=== PATIENT | female | born 1935 | race Caucasian/White ===

== ENCOUNTER 2024-01-23 08:52 | Inpatient (IN) ==
[2024-01-23] MEDS: fentaNYL 100 MCG/2 ML VIAL IV ONE ×2 (09:17→10:32)
[2024-01-23 09:49] LABS: Blood Urea Nitrogen 14 mg/dL (8-23); Calcium 8.7 mg/dL (8.6-10.4); Carbon Dioxide 28 mmol/L (22-30); Chloride 102 mmol/L (96-108); Glomerular Filtration Rate 87; Glucose 128 mg/dL (70-105); Potassium 3.7 mmol/L (3.3-5.1); Sodium 139 mmol/L (133-145)
[2024-01-23 09:53] LABS: INR 0.9 (0.9-1.1); Prothrombin Time 12.6 sec (11.9-14.5)
[2024-01-23 10:18] LABS: Basophils # (Auto) 0.04 K/mcL (0.00-0.30); Basophils % (Auto) 0.3 % (0.0-2.0); Eosinophils # (Auto) 0.04 K/mcL (0.00-0.70); Eosinophils % (Auto) 0.3 % (0.0-7.0); Hematocrit 36.5 % (34.1-44.9); Hemoglobin 11.8 g/dL (11.2-15.7); Lymphocytes # (Auto) 1.37 K/mcL (1.50-4.80); Lymphocytes % (Auto) 9.9 % (15.5-49.0); Mean Cell Volume 92.2 fL (80.0-100.0); Mean Corpuscular HGB Conc 32.3 g/dL (31.0-36.0); Mean Platelet Volume 9.8 fL (8.8-12.5); Monocytes # (Auto) 1.21 K/mcL (0.10-0.90); Monocytes % (Auto) 8.8 % (1.0-12.0); Neutrophils % (Auto) 80.3 % (38.0-78.0); Platelet Count 243 K/mcL (140-440); RBC 3.96 M/mcL (3.59-5.38); Red Cell Distribution Width 13.4 % (11.5-14.5); WBC 13.8 K/mcL (4.5-11.0)
[2024-01-23] MEDS: 0.9 % SODIUM CHLORIDE 500 ML IV ONE (10:32)
[2024-01-23] MEDS ORDERED: ONDANSETRON 4 MG/2 ML VIAL ONE (10:46)
[2024-01-23] MEDS ORDERED: ROCURONIUM 10 MG/ML ML IV ONE (10:46)
[2024-01-23] MEDS ORDERED: fentaNYL 100 MCG/2 ML VIAL ONE ×2 (10:46→12:44)
[2024-01-23] MEDS ORDERED: PROPOFOL 200 MG/20 ML VIAL IV ONE (10:46)
[2024-01-23] MEDS: ceFAZolin 2 GM in DEXTROSE 5% IN WATER 50 ML IV SCH ×2 (11:17→17:41)
[2024-01-23] MEDS ORDERED: ONDANSETRON 4 MG/2 ML VIAL IV PRN ×2 (12:15→13:53)
[2024-01-23] MEDS ORDERED: NALOXONE HCL 0.4 MG/ML VIAL IV PRN (12:15)
[2024-01-23] MEDS ORDERED: fentaNYL 100 MCG/2 ML VIAL IV PRN (12:15)
[2024-01-23] MEDS ORDERED: IPRATROPIUM/ALBUTEROL 3 ML AMPUL.NEB NEB PRN (12:15)
[2024-01-23] MEDS ORDERED: BENZOCAINE/MENTHOL 1 LOZENGE PO PRN (12:43)
[2024-01-23] MEDS ORDERED: BISACODYL 10 MG SUPP.RECT PR PRN (12:43)
[2024-01-23] MEDS ORDERED: FLEETS ADULT 1 DOSE ENEMA PR PRN (12:43)
[2024-01-23] MEDS ORDERED: SUGAMMADEX SODIUM 200 MG/2 ML VIAL IV ONE (12:44)
[2024-01-23] MEDS: TRANEXAMIC ACID 1,000 MG/10 ML VIAL IV SCH (13:05)
[2024-01-23] MEDS: TRANEXAMIC ACID 1,000 MG/10 ML VIAL IV ONE (14:08)
[2024-01-23] MEDS: LACTATED RINGERS 1,000 ML IV SCH ×2 (14:13→14:26)
[2024-01-23] MEDS: ONDANSETRON 4 MG/2 ML VIAL IV PRN (14:13)
[2024-01-23] MEDS: 0.9 % SODIUM CHLORIDE 10 ML SYRINGE IV SCH ×2 (17:42→17:43)
[2024-01-23] MEDS: ACETAMINOPHEN 500 MG TABLET PO SCH (17:43)
[2024-01-23] MEDS: ceFAZolin 1 GM VIAL IV SCH (20:00)
[2024-01-23] MEDS ORDERED: SENNOSIDES 1 TABLET PO SCH (21:00)
[2024-01-23] MEDS ORDERED: DOCUSATE SODIUM 100 MG CAPSULE PO SCH (21:00)
[2024-01-23] MEDS ORDERED: ASPIRIN 81 MG TAB.CHEW CHEWED SCH (21:00)
[2024-01-23] MEDS: METHOCARBAMOL 500 MG TABLET PO PRN (21:28)
[2024-01-23] MEDS: SENNOSIDES 1 TABLET PO SCH (21:28)
[2024-01-23] MEDS: PHENYTOIN SOD 100 MG CAPSULE PO SCH (21:28)
[2024-01-23] MEDS: DOCUSATE SODIUM 100 MG CAPSULE PO SCH (21:28)
[2024-01-24] MEDS: oxyCODONE IR 5 MG TABLET PO PRN (00:11)
[2024-01-24 06:59] LABS: Basophils # (Auto) 0.03 K/mcL (0.00-0.30); Basophils % (Auto) 0.3 % (0.0-2.0); Eosinophils # (Auto) 0.02 K/mcL (0.00-0.70); Eosinophils % (Auto) 0.2 % (0.0-7.0); Hematocrit 26.4 % (34.1-44.9); Hemoglobin 8.3 g/dL (11.2-15.7); Lymphocytes # (Auto) 1.07 K/mcL (1.50-4.80); Lymphocytes % (Auto) 11.3 % (15.5-49.0); Mean Cell Volume 94.6 fL (80.0-100.0); Mean Corpuscular HGB Conc 31.4 g/dL (31.0-36.0); Mean Platelet Volume 9.8 fL (8.8-12.5); Monocytes # (Auto) 1.54 K/mcL (0.10-0.90); Monocytes % (Auto) 16.2 % (1.0-12.0); Neutrophils % (Auto) 71.8 % (38.0-78.0); Platelet Count 151 K/mcL (140-440); RBC 2.79 M/mcL (3.59-5.38); Red Cell Distribution Width 13.6 % (11.5-14.5); WBC 9.5 K/mcL (4.5-11.0)
[2024-01-24] MEDS: ENOXAPARIN 40 MG/0.4 ML SYRINGE SQ SCH (08:49)
[2024-01-24] MEDS ORDERED: IOPAMIDOL 100 ML BOTTLE IV ONE (10:16)
[2024-01-25 08:42] LABS: Hematocrit 25.5 % (34.1-44.9); Hemoglobin 8.1 g/dL (11.2-15.7)
[2024-01-25 12:34] LABS: Hemoglobin 8.8 g/dL (11.2-15.7)
[2024-01-26] MEDS: POLYETHYLENE GLYCOL 3350 17 GM PACKET PO PRN (08:01)
[2024-01-26] MEDS: MAGNESIUM HYDROXIDE 30 ML ORAL.SUSP PO PRN (09:58)
== END 2024-01-26 15:15 | DRG 482 ==
LOC: ED 08:52 → SUR 11:00 → MEDSUR 13:39
PROVIDERS: ADMIT Internal Medicine; ATTEND Internal Medicine